=== PATIENT | female | born 1985 | race Asian ===

== ENCOUNTER 2019-09-11 06:30 | Inpatient (IN) | payer OTHER ==
[~2019-09-11] VITALS: Ht 170.2 cm; Wt 77.1 kg
[2019-09-11] MEDS ORDERED: OXYTOCIN/0.9 % SODIUM CHLORIDE 1,000 ML IV SCH (09:15)
[2019-09-11] MEDS ORDERED: MISOPROSTOL 100 MCG TABLET (CYTOTEC) VG SCH (09:15)
[2019-09-11] MEDS ORDERED: MISOPROSTOL 100 MCG TABLET (CYTOTEC) PO SCH (09:30)
[2019-09-11] MEDS ORDERED: LR 1,000 ML IV ONE (09:33)
[2019-09-11] MEDS ORDERED: TERBUTALINE SULFATE 1 MG/ML VIAL SUBCUT ONE (09:45)
[2019-09-11] MEDS ORDERED: AMPICILLIN SODIUM 2 GM in NS 100 ML IV ONE (09:45)
[2019-09-11] MEDS: LR 1,000 ML IV SCH ×2 (09:54→21:18)
[2019-09-11] MEDS ORDERED: MISOPROSTOL 100 MCG TABLET (CYTOTEC) ONE (09:57)
[2019-09-11 10:22] LABS: BASOPHILS % (AUTO) 0.4 % (0.0-2.0); EOSINOPHILS # (AUTO) 0.1 K/uL (0.0-0.4); EOSINOPHILS % (AUTO) 0.9 % (0.0-4.0); HEMATOCRIT 34.2 % (36-48); HEMOGLOBIN 11.4 g/dL (12.0-16.0); LYMPHOCYTES # (AUTO) 1.5 K/uL (1.0-5.5); LYMPHOCYTES % (AUTO) 23.4 % (20.5-51.5); MEAN CORPUSCULAR HEMOGLOBIN 34 pg (27-31); MEAN CORPUSCULAR HGB CONC 33 % (32-36); MEAN CORPUSCULAR VOLUME 103 fL (79.0-98.0); MONOCYTES # (AUTO) 0.5 K/uL (0.0-1.0); NEUTROPHILS # (AUTO) 4.2 K/uL (1.8-7.7); NEUTROPHILS % (AUTO) 67.3 % (40.0-70.0); PLATELET COUNT (AUTO) 119 K/uL (130-430); RED BLOOD CELL COUNT(AUTO) 3.33 MIL/uL (4.2-6.2); RED CELL DISTRIBUTION WIDTH 13.1 % (9.0-15.0); WHITE BLOOD COUNT (AUTO) 6.2 K/uL (4.8-10.8)
[2019-09-11 10:58] VITALS: BP_SYST 100
[2019-09-11] MEDS ORDERED: AMPICILLIN SODIUM 1 GM in NS 50 ML IV SCH (12:00)
[2019-09-11] MEDS: AMPICILLIN SODIUM 1 GM in NS 50 ML IV SCH ×3 (14:00→22:52)
[2019-09-11] MEDS ORDERED: fentaNYL CITRATE/PF 100 MCG/2 ML AMP ONE (21:21)
[2019-09-11] MEDS ORDERED: ROPIVACAINE HCL/PF 0.2% 200 ML ONE (21:22)
[2019-09-12] MEDS: LR 1,000 ML IV SCH (02:50)
[2019-09-12] MEDS: AMPICILLIN SODIUM 1 GM in NS 50 ML IV SCH (02:51)
[2019-09-12] MEDS ORDERED: OXYTOCIN/0.9 % SODIUM CHLORIDE 1,000 ML IV SCH (06:22)
[2019-09-12] MEDS ORDERED: OXYTOCIN/0.9 % SODIUM CHLORIDE 1,000 ML IV ONE (06:22)
[2019-09-12] MEDS ORDERED: DIPH-TET-PERTUS Vaccine 0.5 ML VIAL (ADACEL) I.M. PRN (06:30)
[2019-09-12] MEDS ORDERED: WITCH HAZEL LEAF 1 MED.PAD MED.PAD TP PRN (06:30)
[2019-09-12] MEDS ORDERED: HYDROCORTISONE 0.5%, 28.35 GM TOPICAL CREAM TP PRN (06:30)
[2019-09-12] MEDS ORDERED: ANUSOL 1 EA SUPP.RECT (PREPARATION H) RC PRN (06:30)
[2019-09-12] MEDS ORDERED: DOCUSATE SODIUM 100 MG CAPSULE PO PRN (06:30)
[2019-09-12] MEDS ORDERED: OXYCODONE/ACETAMINOPHEN 5-325 TABLET PO PRN (06:30)
[2019-09-12] MEDS ORDERED: LANOLIN 7 GM OINT. TP PRN (06:30)
[2019-09-12] MEDS ORDERED: DERMOPLAST SPRAY TP PRN (06:30)
[2019-09-12] MEDS ORDERED: MEASLES,MUMPS&RUBELLA VACC/PF 12500 UNIT/0.5 ML VIAL SUBQ PRN (06:30)
[2019-09-12] MEDS ORDERED: METHYLERGONOVINE MALEATE 0.2 MG TABLET PO PRN (06:30)
[2019-09-12] MEDS ORDERED: SENNOSIDES/DOCUSATE SODIUM 1 TAB TABLET(SENOKOT-S) PO PRN (06:30)
[2019-09-12] MEDS ORDERED: IBUPROFEN 600 MG TABLET PO PRN (06:30)
[2019-09-12] MEDS ORDERED: LR 500 ML IV ONE (08:23)
[2019-09-12] MEDS ORDERED: FENT2mCg/mL-ROPIVA0.2%/NS EPID 200 ML EP SCH (08:30)
[2019-09-12] MEDS ORDERED: BUPIVACAINE /PF 0.25% 30 ML VIAL INJ ONE (11:27)
[2019-09-12] MEDS: IBUPROFEN 600 MG TABLET PO SCH ×2 (11:39→17:48)
[2019-09-12] MEDS: OXYCODONE/ACETAMINOPHEN 5-325 TABLET PO PRN (20:44)
[2019-09-12] MEDS ORDERED: TEMAZEPAM 15 MG CAPSULE PO PRN (21:00)
[2019-09-13] MEDS: IBUPROFEN 600 MG TABLET PO SCH ×4 (00:45→17:52)
[2019-09-13 06:39] LABS: HEMATOCRIT 31.5 % (36-48); HEMOGLOBIN 10.6 g/dL (12.0-16.0)
[2019-09-13] MEDS: OXYCODONE/ACETAMINOPHEN 5-325 TABLET PO PRN (21:08)
[2019-09-14] MEDS: IBUPROFEN 600 MG TABLET PO SCH ×3 (00:11→12:00)
[2019-09-14] MEDS: OXYCODONE/ACETAMINOPHEN 5-325 TABLET PO PRN ×2 (06:35→12:01)
== END 2019-09-14 14:47 | disposition home or self-care (01) | DRG 560 ==
LOC: SPU 06:30
PROVIDERS: ADMIT Obstetrics & Gynecology; ATTEND Obstetrics & Gynecology
PROC: 3E0R3BZ Introduction of Anesthetic Agent into Spinal Canal, Percutaneous Approach (ICD-10-PCS; principal; 2019-09-11)
PROC: 10E0XZZ Delivery of Products of Conception, External Approach (ICD-10-PCS; 2019-09-11)
PROC: 00HU33Z Insertion of Infusion Device into Spinal Canal, Percutaneous Approach (ICD-10-PCS; 2019-09-11)
PROC: 0HQ9XZZ Repair Perineum Skin, External Approach (ICD-10-PCS; 2019-09-11)
DX: O99.824 Streptococcus B carrier state complicating childbirth (principal); O69.81X0 Labor and delivery complicated by cord around neck, without compression, not applicable or unspecified; O70.0 First degree perineal laceration during delivery; Z37.0 Single live birth; Z3A.38 38 weeks gestation of pregnancy
CPT/HCPCS: 36415; 85018-TC; 85025; 86592; 86886; 86900; 86901; J0290; J2590; J3010; J3490; J7120